=== PATIENT | female | born 1935 | race Caucasian/White ===

== ENCOUNTER 2018-09-04 05:30 | Inpatient (IN) ==
[2018-09-04] MEDS ORDERED: Dexamethasone Inj 20 MG/5 ML Vial IV.PUSH ONE (06:10)
[2018-09-04] MEDS ORDERED: Chlorhexidine 4% Topical 120 APPLIC/120 ML Bottle TOPICAL SCH (06:15)
[2018-09-04] MEDS ORDERED: Metoprolol Tartrate 25 MG Tablet PO ONE (06:21)
[2018-09-04] MEDS ORDERED: Chlorhexidine Gluconate 2% 1 Pack (2 Cloths) TOPICAL ONE (06:21)
[2018-09-04] MEDS ORDERED: Post-op Orders (for Pharmacy) OTHER STA (06:53)
[2018-09-04] MEDS ORDERED: Bisacodyl 10 MG Supp RECTAL PRN (06:53)
[2018-09-04] MEDS ORDERED: ceFAZolin 2 GM Premix Inj 2 GM/50 ML PIGGYBACK IV.SIG SCH ×2 (07:00→14:00)
[2018-09-04] MEDS ORDERED: Vancomycin Inj 1,000 MG in Sodium Chlor 0.9% Inj 250 ML IV.SIG SCH (07:00)
[2018-09-04] MEDS ORDERED: Sodium Chlor 0.9% Inj 500 ML IV.SIG SCH (07:00)
[2018-09-04] MEDS ORDERED: Lidocaine PF 1% Inj 5 ML Syringe OTHER ONE (07:56)
[2018-09-04] MEDS ORDERED: Neostigmine Inj 5 MG/5 ML Syringe IV.PUSH ONE (07:56)
[2018-09-04] MEDS ORDERED: Glycopyrrolate Inj 1 MG/5 ML Syringe IV.PUSH ONE (07:56)
[2018-09-04] MEDS ORDERED: SODIUM CHLOR 0.9% IV.SIG SCH (08:30)
[2018-09-04] MEDS ORDERED: Sodium Chlor 0.9% Inj 100 ML, Tranexamic Acid Inj 3,000 MG P-ARTICULR SCH ×2 (08:30)
[2018-09-04] MEDS ORDERED: HYDROmorphone PF Inj 1 MG/ML Ampul IV.PUSH PRN (08:30)
[2018-09-04] MEDS ORDERED: TRANEXAMIC ACID IV.SIG SCH (08:30)
[2018-09-04] MEDS ORDERED: Sodium Chlor 0.9% Inj 40 ML, Bupivacaine Liposo PF 1.3% Inj 20 ML P-ARTICULR SCH ×2 (08:30)
[2018-09-04] MEDS ORDERED: Morphine Inj 4 MG/ML Vial ONE (10:22)
[2018-09-04] MEDS ORDERED: fentaNYL Citrate Inj 100 MCG/2 ML Ampul ONE (10:22)
[2018-09-04] MEDS ORDERED: *Meperidine Inj 25 MG/ML Vial PERIprocedural Use ONLY ONE (10:26)
[2018-09-04] MEDS ORDERED: *morphine SULFATE 4 MG/ML PERIprocedure ONLY ONE ×2 (10:45→11:23)
--- NOTE | 2018-09-04 10:59 | XR ---
EXAM DATE: 09/04/2018 9:59 AM EDT AGE/SEX: 82 years / Female INDICATIONS: Post-op right total hip arthroplasty. CLINICAL DATA: This is the patient's initial encounter. Patient reports that signs and symptoms have been present for 1 day and indicates a pain score of Nonresponsive. MEDICAL/SURGICAL HISTORY: Non-responsive. Non-responsive. COMPARISON: No prior exams available for comparison. FINDINGS: 2 AP views of the right hip were obtained and demonstrate the patient is status post arthroplasty. Th e femoral and acetabular components are intact and in normal alignment. There is overlying soft tissu e swelling and gas. CONCLUSION: Expected postoperative changes status post arthroplasty. Electronically signed by: Rancho Zarco MD 09/04/2018 10:57 AM EDT
[2018-09-04] MEDS ORDERED: *morphine SULFATE 8 MG/ML PERIprocedure ONLY ONE (11:06)
--- NOTE | 2018-09-04 11:26 | XR ---
EXAM DATE: 09/04/2018 11:23 AM EDT AGE/SEX: 82 years / Female INDICATIONS: Post-op right total hip arthroplasty. CLINICAL DATA: This is the patient's initial encounter. Patient reports that signs and symptoms have been present for 1 day and indicates a pain score of 6/10. MEDICAL/SURGICAL HISTORY: Hypertension. . Left total hip arthroplasty. COMPARISON: TLI, XR HIP AP AND LAT, RIGHT, 05/17/2018. . FINDINGS: AP and crosstable lateral views the right hip were obtained as well as an AP view the pelvis. The pat ient is status post bilateral hip arthroplasty. The femoral and acetabular components are intact and in normal alignment. There is soft tissue swelling and gas surrounding the right arthroplasty. CONCLUSION: Status post bilateral hip arthroplasty with expected postoperative change. Electronically signed by: Rancho Zarco MD 09/04/2018 11:25 AM EDT
--- NOTE | 2018-09-04 13:18 | MP ---
cc: Cricket Salazar MD DATE OF OPERATION: 09/04/2018 PREOPERATIVE DIAGNOSIS: Right hip osteoarthritis. POSTOPERATIVE DIAGNOSIS: Right hip osteoarthritis. PROCEDURE PERFORMED: Right total hip arthroplasty. SURGEON: Cricket Salazar MD. SPINNER IRON: TAMANNA Herr. ANESTHESIA: General. ESTIMATED BLOOD LOSS: 250 mL. COMPLICATIONS: None. IMPLANTS USED: DePuy Corail size 12 press-fit high offset femoral stem, size 52 solid Austin Gription cup, size 36 mm cobalt chrome head +1.5 neck. JUSTIFICATION: This patient is an 82-year-old female with a history of severe osteoarthritis involving the right hip joint. She has severe disabling pain with standing, walking, and severe pain at rest. She has failed greater than 3 months of nonoperative conservative treatment to include medication therapy, injections, ambulatory assistive aids, home exercise program, activity modification, or weight loss. X-rays of the right hip reveal severe osteoarthritis with [id number] joint space narrowing, subchondral sclerosis, subchondral cyst, osteophyte formation with subluxation. The patient was counseled on risks, benefits, and alternatives to a total hip arthroplasty. The risks were discussed, which include, but are not limited to anesthesia, bleeding, infection, damage to nerves or blood vessels, pain, stiffness, fracture dislocations, leg length discrepancies, blood clots, pulmonary embolism, and even . The patient's pain is severe. She favored the benefits over the risks. She did wish to proceed with surgery. PROCEDURE IN DETAIL: Written consent was obtained. The patient was identified by name, taken to the operating room and placed supine on the operating table. General anesthesia was administered to the patient as well as 2 grams of IV Ancef and 1 gram of IV vancomycin. The right and left feet were placed in a well-padded traction boots. The right hip and right lower extremity were prepped and draped using isopropyl alcohol, Hibiclens solution and ChloraPrep solution. After a timeout was performed, a longitudinal incision made over the anterolateral aspect of the right hip. The fascial layer was incised. Dissection was carried over the tensor fascia yaakov beneath the rectus femoris to allow exposure of the anterior hip capsule. A capsulotomy incision was performed. used to perform a femoral neck cut. The osteophytic femoral head and neck component was removed. A 10 blade scalpel was used to excise the labrum. Sequential reaming began at size 47 and was carried through to a size 52. A solid Austin 52 mm cup was impacted at approximately 45 degrees of abduction and 10 degrees of anteversion. There was good purchase and fixation and insertion of the cup. A screw hole eliminator was placed, followed by the neutral 36 mm highly crosslinked polyethylene liner. The liner was impacted in place and tested for stability. Attention was turned to the femur where the leg was externally rotated, extended and adducted. The capsule was released off the undersurface of the greater trochanter to allow for elevation and lateralization of the femur. A box cutting osteotome was used to gain entrance into the intramedullary canal of the femur and was followed by canal finder and sequential broaching up to a size 12. A calcar planer was used to plane the calcar. Trial head and neck combinations were evaluated and final components implanted with the correct components likely to achieve extra rotation of 70 degrees extension all the way down to the ground without evidence of anterior instability or impingement. Fluoroscopic imaging showed appropriate implantation of components. The surgical wound was thoroughly irrigated with sterile saline pulse lavage with antibiotic-impregnated solution. The fascial layer was closed with #1 Vicryl suture, subcutaneous layer with 2-0 Vicryl suture. Skin was closed with Dermabond. Sterile dressing was applied. The patient tolerated the procedure well. No intraoperative complications noted. Alex Perea, physician assistant controller certified, was present during the entire procedure to include patient positioning and the procedure itself. The medical necessity of physician assistant controller was indicated in this case due to complexity of the procedure. He assisted with appropriate manipulation of the leg and also retraction of muscle, tendon, bone and neurovascular structures. He assisted with preparation of bone and also implantation of the prosthetic replacement. MD GEOVANNA Medina/yoly/isela , 09:51 AM , 09:58 AM
[2018-09-04] MEDS ORDERED: *Ondansetron Inj 4 MG/2 ML Vial PERIprocedural Use ONLY ONE (13:48)
[2018-09-04] MEDS: Multivitamin/Minerals Therapeutic Tablet PO SCH ×2 (16:12→21:25)
[2018-09-04] MEDS: Senna/Docusate Sodium 8.6/50 MG Tablet PO SCH ×2 (16:13→21:24)
[2018-09-04] MEDS: ceFAZolin 2 GM Premix Inj 2 GM/100 ML BAG IV.SIG SCH ×2 (17:40→21:23)
[2018-09-04] MEDS ORDERED: Zolpidem Tartrate 5 MG Tablet PO PRN (21:00)
[2018-09-04 22:04] LABS: Bacteria,Urine Rare /hpf; Bilirubin,Urine Negative (Negative); Calcium Oxalate Crystals,Urine Rare /hpf; Clarity,Urine Hazy (Clear); Color,Urine Yellow (Yellw/Straw); Glucose,Urine (UA) Negative (Negative); Hyaline Casts,Urine 5 /lpf (0-3); Leukocyte Esterase,Urine Small (Negative); Mucus,Urine Few /lpf (Occasional); Nitrite,Urine Negative (Negative); Specific Gravity,Urine 1.018 (1.002-1.035); Squamous Epithelial Cell,Urine 1 /hpf (0-5)
[2018-09-05] MEDS: ceFAZolin 2 GM Premix Inj 2 GM/100 ML BAG IV.SIG SCH (01:25)
[2018-09-05 05:39] LABS: Hematocrit 32.4 % (35.0-46.0); Hemoglobin 10.8 gm/dL (11.6-15.3)
[2018-09-05 05:55] LABS: Calcium 8.3 mg/dL (8.5-10.1); Carbon Dioxide 26.1 meq/L (21.0-32.0); Potassium 4.5 meq/L (3.5-5.1)
--- NOTE | 2018-09-05 08:27 | P.PNOP ---
Subjective Interval history: pain tolerable. Physical Exam Vital signs: Vital Signs 09/04/18 10:12 09/04/18 10:15 09/04/18 10:30 Temperature 97.9 F 97.9 F 97.9 F Pulse Rate 86 85 79 Respiratory Rate 14 16 14 Blood Pressure 121/56 L 124/65 148/66 H Pulse Oximetry 97 99 98 09/04/18 10:45 09/04/18 11:00 09/04/18 11:30 Temperature 97.9 F 97.9 F 97.9 F Pulse Rate 71 73 65 Respiratory Rate 14 14 14 Blood Pressure 136/61 132/62 117/56 L Pulse Oximetry 99 94 L 96 09/04/18 12:00 09/04/18 12:30 09/04/18 13:00 Temperature 97.9 F 97.9 F 97.9 F Pulse Rate 73 79 70 Respiratory Rate 14 14 14 Blood Pressure 122/58 L 115/55 L 106/53 L Pulse Oximetry 97 96 97 09/04/18 15:00 09/04/18 16:00 09/04/18 16:30 Temperature 97.9 F 97.9 F Pulse Rate 76 77 Respiratory Rate 14 14 Blood Pressure 120/59 L 122/62 Pulse Oximetry 95 99 96 09/04/18 20:00 09/05/18 00:00 09/05/18 04:00 Temperature 97.0 F L 97.6 F 97.7 F Pulse Rate 64 72 86 Respiratory Rate 17 17 18 Blood Pressure 143/79 H 152/70 H 140/63 Pulse Oximetry 98 98 96 Intake & Output 09/04/18 09/05/18 09/05/18 18:59 06:59 18:59 Intake Total 1462.54 / 1462.54 1200 / 1200 Output Total 250 / 250 Balance 1212.54 / 1212.54 1200 / 1200 Weight 83.6 kg 83.3 kg Intake: IV 562.54 / 562.54 1200 / 1200 LR 1000 mL Inj 1,000 ML @ 80 1000 / 1000 mls/hr IV.CONT .[id number] [facility] Rx# :[id number] Cyklokapron Inj 1,254 MG In NS 112.54 / 112.54 Inj 100 ML @ 200 mls/hr IV.SIG ONCE [facility] Rx#:[id number] Vancomycin Inj 1,000 MG In NS 250 / 250 Inj 250 ML @ 250 mls/hr IV.SIG [facility] Rx#:[id number] Ancef 2 GM Premix Inj 2 gm In 100 / 100 200 / 200 100 ml @ 100 mls/hr IV.SIG Q6H [facility] Rx#:[id number] Ancef 2 GM Premix Inj 2 gm In 50 / 50 50 ml @ 100 mls/hr IV.SIG [facility] Rx#:[id number] Anesthesia Amount 900 / 900 Output: Estimated Blood Loss 250 / 250 Other: # Voids 0 5 Date of Last Bowel Movement 09/04/18 09/04/18 # Bowel Movements 1 Narrative: in bed, nad dressing c/d/i thigh soft, mild ecchymosis neg homans nvi Results - Labs CBC & Chem 7: 09/05/18 04:06 09/05/18 04:06 Laboratory Results - last 24 hr 09/04/18 09/05/18 09/05/18 06:05 04:06 04:06 Hgb 10.8 L Hct 32.4 L Sodium 141 Potassium 4.5 Chloride 107 Carbon Dioxide 26.1 Anion Gap 8 BUN 16 Creatinine 0.77 Estimated GFR 72 L Random Glucose 116 H Calcium 8.3 L Urine Color Yellow Urine Clarity Hazy H Urine pH 5.0 Ur Specific [place] 1.018 Urine Protein Negative Urine Glucose (UA) Negative Urine Ketones Negative Urine Occult Blood Negative Urine Nitrate Negative Urine Bilirubin Negative Urine Urobilinogen Less than 2 Ur Leukocyte Esterase Small H Urine RBC 1 Urine WBC 9 H Ur Squamous Epith Cells 1 Calcium Oxalate Crystal Rare H Urine Bacteria Rare H Hyaline Casts 5 Urine Mucus Few H Micro UA Comment Culture indicated Ur Microscopic Review Not Reportable Urine Culture Comments Culture indicated - Imaging Impressions Hip X-Ray 09/04/18 00:00 CONCLUSION: Expected postoperative changes status post arthroplasty. Hip X-Ray 09/04/18 06:52 CONCLUSION: Status post bilateral hip arthroplasty with expected postoperative change. Assessment and Plan - Ortho Post Op Day # 1 - Assessment and Plan s/p R KALIA anterior approach wbat ok to maintain dressing unless saturated asa 82 d/c planning to snf vs home with hhc and pt - depending upon progress in PT f/up dr. harris 2 weeks
--- NOTE | 2018-09-05 09:04 | P.CON ---
History of Present Illness Service: Hospitalist Consult date: 09/05/18 Requesting Physician: Cricket Salazar Reason for Consult: Medical management. Primary Care Provider: Mikie Palafox MD Chief Complaint: Right hip pain History of Present Illness: Ms. Horne is a pleasant 82-year-old female with a history of hypertension who underwent elective right total hip arthroplasty on 09/04/2018 due to severe right hip osteoarthritis. She failed conservative treatment including medication, injections physical therapy which led to this elective surgery. Hospital service was consulted for medical management. Patient denies any acute concerns. At the time of this interview, patient denies any chest pain, shortness of breath, fever or chills. Her pain is well controlled. Denies any changes in bowel or bladder habits. She does complain of multiple episodes of UTI. Currently she denies any dysuria but complains of lower abdomen/pelvic area discomfort. Past medical history: Right hip osteoarthritis, hypertension, seasonal allergies. Past surgical history: Left hip surgery, sinus surgery. Social history: Patient drinks wine daily and denies using tobacco or illicit drugs. Family history: Both father and mother had hypertension as well as heart disease. Review of Systems All other systems reviewed negative except as stated in HPI PMFSH - History History Provided By: Patient - Medical History Medical History: Medical History (Last Reviewed 09/05/18 @ 10:08 by Brea Zhong) Anxiety Arthritis Back pain Chronic UTI Dental root implant present Diminished hearing GERD (gastroesophageal reflux disease) High cholesterol History of MRSA infection Hypertension Joint pain Neck pain Skin cancer Urinary frequency Urinary incontinence Wears glasses - Surgical History Surgical History: Surgical History (Last Reviewed 09/05/18 @ 10:08 by Brea Zhong) History of arthroplasty of left hip History of sinus surgery Hx of cardiac cath - Tobacco History Second Hand Smoke Exposure: No Smoking Status: Never smoker - Alcohol History How Often Do You Have a Drink Containing Alcohol: 4 or more times a week - Substance Use History Substance History: No History of Abuse - Travel History Recent Travel in the [place] Within the Last 8 Weeks: No Recent Travel Out of the Country Within the Last 8 Weeks: No - Immunization History Tetanus Immunization: Unsure Hx Influenza Vaccine This Season: Yes Medications and Allergies Active Medications: Active Medications Hydrocodone Bitart/Acetaminophen (Covert 7.5/325) 1 tab PO Q4H PRN PRN Reason: PAIN LESS THAN 5 ON SCALE Last Admin: 09/05/18 06:01 Dose: 1 tab Hydrocodone Bitart/Acetaminophen (Covert 7.5/325) 2 tab PO Q6H PRN PRN Reason: PAIN SCALE 5 TO 10 Al Hydroxide/Mg Hydroxide (Milk Of Magnesia Liq) 30 ml PO BID PRN PRN Reason: Mild Constipation Amlodipine Besylate (Norvasc) 5 mg PO DAILY [facility] Aspirin (Aspirin Chew) 81 mg PO BID [facility] Last Admin: 09/04/18 21:24 Dose: 81 mg Bisacodyl (Dulcolax Supp) 10 mg RECTAL DAILY PRN PRN Reason: SEVERE CONSITIPATION Chlorhexidine Gluconate (Hibiclens 4% Topical) 1 applicatio TOPICAL ONCE [facility] Stop: 09/08/18 06:14 Diphenhydramine HCl (Benadryl) 25 mg PO Q6H PRN PRN Reason: ITCHING Hydromorphone HCl (Dilaudid Pf Inj) 1 mg IV.PUSH Q3H PRN PRN Reason: BREAKTHROUGH PAIN Cefazolin Sodium/Dextrose (Ancef 2 Gm Premix Inj) 2 gm in 50 mls @ 100 mls/hr IV.[facility] Stop: 09/08/18 06:59 Last Infusion: 09/04/18 08:42 Dose: Infused Vancomycin HCl 1,000 mg/ (Sodium Chloride) 250 mls @ 250 mls/hr IV.[facility] [employer] [facility] Stop: 09/07/18 06:10 Last Infusion: 09/04/18 09:12 Dose: Infused Sodium Chloride (Ns Inj) 500 mls @ 30 mls/hr IV.SIG .Q10H [facility] Last Admin: 09/04/18 07:12 Dose: Not Given Lactated Ringer's (Lr 1000 Ml Inj) 1,000 mls @ 80 mls/hr IV.CONT .[id number] [facility] Last Admin: 09/04/18 21:26 Dose: 80 mls/hr Lactulose (Lactulose Liq) 30 ml PO DAILY PRN PRN Reason: SEVERE CONSITIPATION Losartan Potassium (Cozaar) 50 mg PO DAILY [facility] Metoprolol Tartrate (Lopressor) 50 mg PO DAILY [facility] Miscellaneous Information (Misc Nursing Information) 0 each OTHER UNSCH PRN PRN Reason: SEE LABEL COMMENTS Stop: 09/05/18 10:14 Multivitamins/Minerals (Theragran-M) 1 tab PO BID [facility] Stop: 11/03/18 08:59 Last Admin: 09/04/18 21:25 Dose: 1 tab Ondansetron HCl (Zofran Inj) 4 mg IV.PUSH Q6H PRN PRN Reason: NAUSEA OR VOMITING Pantoprazole Sodium (Protonix) 40 mg PO DAILY [facility] Povidone Iodine (Betadine 7.5% Scrub) 1 applicatio TOPICAL ONCE [facility] Stop: 09/08/18 06:59 Senna/Docusate Sodium (Jen-Colace) 1 tab PO BID [facility] Last Admin: 09/04/18 21:24 Dose: 1 tab Sennosides (Senokot) 17.2 mg PO BID PRN PRN Reason: Moderate Constipation Sodium Chloride (Ns Flush) 2 ml IV.FLUSH BID [facility] Last Admin: 09/04/18 21:24 Dose: Not Given Sodium Chloride (Ns Flush) 2 ml IV.FLUSH PRN PRN PRN Reason: FLUSH AFTER USING IV ACCESS Trimethoprim/Sulfamethoxazole (Bactrim Ds) 1 tab PO Q12HR [facility] Stop: 09/11/18 23:59 Zolpidem Tartrate (Ambien) 5 mg PO HS PRN PRN Reason: INSOMNIA Allergies Allergy/AdvReac Type Severity Reaction Status Date / Time No Known Allergies Allergy Verified 09/04/18 06:12 Home Medications Medication Instructions Recorded Confirmed Type acetaminophen [Acetaminophen Extra 500 mg PO Q6H PRN 08/17/18 09/04/18 History Strength] amlodipine 5 mg PO DAILY 08/17/18 09/04/18 History diclofenac sodium 75 mg PO BID 08/17/18 09/04/18 History diphenhydramine HCl 25 mg PO Q4H PRN 08/17/18 09/04/18 History fexofenadine [Tyra Allergy] 180 mg PO DAILY 08/17/18 09/04/18 History losartan 50 mg PO DAILY 08/17/18 09/04/18 History metoprolol tartrate 50 mg PO DAILY 08/17/18 09/04/18 History Physical Exam Vital signs: Vital Signs 09/04/18 10:12 09/04/18 10:15 09/04/18 10:30 Temperature 97.9 F 97.9 F 97.9 F Pulse Rate 86 85 79 Respiratory Rate 14 16 14 Blood Pressure 121/56 L 124/65 148/66 H Pulse Oximetry 97 99 98 09/04/18 10:45 09/04/18 11:00 09/04/18 11:30 Temperature 97.9 F 97.9 F 97.9 F Pulse Rate 71 73 65 Respiratory Rate 14 14 14 Blood Pressure 136/61 132/62 117/56 L Pulse Oximetry 99 94 L 96 09/04/18 12:00 09/04/18 12:30 09/04/18 13:00 Temperature 97.9 F 97.9 F 97.9 F Pulse Rate 73 79 70 Respiratory Rate 14 14 14 Blood Pressure 122/58 L 115/55 L 106/53 L Pulse Oximetry 97 96 97 09/04/18 15:00 09/04/18 16:00 09/04/18 16:30 Temperature 97.9 F 97.9 F Pulse Rate 76 77 Respiratory Rate 14 14 Blood Pressure 120/59 L 122/62 Pulse Oximetry 95 99 96 09/04/18 20:00 09/05/18 00:00 09/05/18 04:00 Temperature 97.0 F L 97.6 F 97.7 F Pulse Rate 64 72 86 Respiratory Rate 17 17 18 Blood Pressure 143/79 H 152/70 H 140/63 Pulse Oximetry 98 98 96 09/05/18 08:00 Temperature 98.2 F Pulse Rate 85 Respiratory Rate 18 Blood Pressure 148/65 H Pulse Oximetry 97 Intake & Output 09/04/18 09/05/18 09/05/18 18:59 06:59 18:59 Intake Total 1462.54 / 1462.54 1200 / 1200 Output Total 250 / 250 Balance 1212.54 / 1212.54 1200 / 1200 Weight 83.6 kg 83.3 kg Intake: IV 562.54 / 562.54 1200 / 1200 LR 1000 mL Inj 1,000 ML @ 80 1000 / 1000 mls/hr IV.CONT .[id number] [facility] Rx# :[id number] Cyklokapron Inj 1,254 MG In NS 112.54 / 112.54 Inj 100 ML @ 200 mls/hr IV.SIG ONCE [facility] Rx#:[id number] Vancomycin Inj 1,000 MG In NS 250 / 250 Inj 250 ML @ 250 mls/hr IV.[facility] [employer] Rx#:[id number] Ancef 2 GM Premix Inj 2 gm In 100 / 100 200 / 200 100 ml @ 100 mls/hr IV.SIG Q6H [facility] Rx#:[id number] Ancef 2 GM Premix Inj 2 gm In 50 / 50 50 ml @ 100 mls/hr IV.[facility] [employer] Rx#:[id number] Anesthesia Amount 900 / 900 Output: Estimated Blood Loss 250 / 250 Other: # Voids 0 5 Date of Last Bowel Movement 09/04/18 09/04/18 # Bowel Movements 1 Narrative: GENERAL: Alert, NAD. SKIN: Warm and dry. HEAD: Normocephalic. EYES: No scleral icterus. No injection or drainage. NECK: Supple, trachea midline. No JVD or lymphadenopathy. CARDIOVASCULAR: Regular rate and rhythm without murmurs, gallops, or rubs. RESPIRATORY: Breath sounds equal bilaterally. No accessory muscle use. GASTROINTESTINAL: Abdomen soft, non-tender, nondistended. MUSCULOSKELETAL: No cyanosis, or edema. s/p right KALIA BACK: Nontender without obvious deformity. No CVA tenderness. Assessment and Plan - Plan Ms. Covington is a pleasant 82-year-old female with a history of hypertension who underwent elective right total hip plasty due to osteoarthritis on 09/04/2018. Hospital service was consulted for medical management. Right hip osteoarthritis -s/p right total hip arthroplasty -Aspirin 81 mg twice daily for DVT prophylaxis Hypertension Seasonal allergies -Continue home medications including amlodipine, losartan, metoprolol, Tyra. Full code. Aspirin 81mg BID. Patient is discharged by orthopedic surgery. Waiting for [facility] or [facility].
[2018-09-05] MEDS: Metoprolol Tartrate 50 MG Tablet PO SCH (09:45)
[2018-09-05] MEDS: amLODIPine 5 MG Tablet PO SCH (09:45)
[2018-09-05] MEDS: Senna/Docusate Sodium 8.6/50 MG Tablet PO SCH ×2 (09:46→20:56)
[2018-09-05] MEDS: Multivitamin/Minerals Therapeutic Tablet PO SCH ×2 (09:46→20:56)
[2018-09-06 05:45] LABS: Hemoglobin 9.7 gm/dL (11.6-15.3)
[2018-09-06] MEDS: Metoprolol Tartrate 50 MG Tablet PO SCH (09:17)
[2018-09-06] MEDS: Senna/Docusate Sodium 8.6/50 MG Tablet PO SCH ×2 (09:17→21:30)
[2018-09-06] MEDS: Multivitamin/Minerals Therapeutic Tablet PO SCH ×2 (09:17→21:30)
[2018-09-06] MEDS: amLODIPine 5 MG Tablet PO SCH (09:17)
--- NOTE | 2018-09-06 13:32 | P.PNOP ---
Subjective Interval history: still have nausea. Physical Exam Vital signs: Vital Signs 09/05/18 16:00 09/05/18 20:00 09/05/18 20:54 Temperature 98.4 F 98.3 F Pulse Rate 101 H 102 H Respiratory Rate 18 18 18 Blood Pressure 141/65 H 132/60 Pulse Oximetry 92 L 94 L 09/06/18 00:00 09/06/18 08:00 09/06/18 12:00 Temperature 98.3 F 98.2 F 97.1 F L Pulse Rate 92 H 106 H 78 Respiratory Rate 18 17 18 Blood Pressure 110/54 L 152/69 H 130/58 L Pulse Oximetry 93 L 93 L 96 Intake & Output 09/05/18 09/06/18 09/06/18 18:59 06:59 18:59 Weight 83 kg Other: # Voids 4 6 Date of Last Bowel Movement 09/05/18 09/05/18 09/04/18 # Bowel Movements 1 Narrative: in bed, nad, trying to eat dressing c/d/i thigh soft neg homans nvi Results - Labs CBC & Chem 7: 09/06/18 05:00 09/05/18 04:06 Laboratory Results - last 24 hr 09/06/18 05:00 Hgb 9.7 L Hct 29.0 L Microbiology 09/04/18 06:05 Clean Catch Urine Urine Culture - Final No growth in 48 hours Assessment and Plan - Ortho Post Op Day # 2 - Assessment and Plan s/p R KALIA anterior approach wbat ok to maintain dressing unless saturated asa 82 chronic UTI - Bactrim DS. will likely need to f/up with urology after d/c d/c planning to snf f/up dr. harris 2 weeks
[2018-09-06 16:33] VITALS: O2SAT 93
--- NOTE | 2018-09-07 08:11 | P.PNOP ---
Subjective Interval history: feeling a little better. Physical Exam Vital signs: Vital Signs 09/06/18 12:00 09/06/18 16:00 09/06/18 20:00 Temperature 97.1 F L 97.6 F 98.2 F Pulse Rate 78 72 97 H Respiratory Rate 18 18 15 Blood Pressure 130/58 L 115/70 141/63 H Pulse Oximetry 96 93 L 93 L 09/06/18 20:10 09/07/18 00:00 Temperature 98.1 F Pulse Rate 83 Respiratory Rate 15 15 Blood Pressure 122/58 L Pulse Oximetry 93 L Intake & Output 09/06/18 09/07/18 09/07/18 18:59 06:59 18:59 Intake Total 960 / 960 400 / 400 Balance 960 / 960 400 / 400 Weight 79.5 kg Intake: Oral 960 / 960 400 / 400 Other: # Voids 3 3 Date of Last Bowel Movement 09/04/18 09/04/18 Narrative: in bed, eating, nad dressing c/d/i thigh soft neg homans nvi Results - Labs CBC & Chem 7: 09/06/18 05:00 09/05/18 04:06 Microbiology 09/04/18 06:05 Clean Catch Urine Urine Culture - Final No growth in 48 hours Assessment and Plan - Ortho Post Op Day # 3 - Assessment and Plan s/p R KALIA anterior approach wbat ok to maintain dressing unless saturated asa 82 chronic UTI - Bactrim DS. will likely need to f/up with urology after d/c d/c planning to snf - cleared when authorized by insurance f/up dr. harris 2 weeks
[2018-09-07] MEDS: Senna/Docusate Sodium 8.6/50 MG Tablet PO SCH (08:30)
[2018-09-07] MEDS: amLODIPine 5 MG Tablet PO SCH (08:32)
[2018-09-07] MEDS: Metoprolol Tartrate 50 MG Tablet PO SCH (08:32)
[2018-09-07] MEDS: Multivitamin/Minerals Therapeutic Tablet PO SCH (08:32)
[2018-09-07 09:51] VITALS: RESP 20
[2018-09-07 12:36] VITALS: BP 111/53; PULSE 74; TEMP 97.9
--- NOTE | 2018-09-08 12:48 | MD ---
cc: Cricket Salazar MD DATE OF DISCHARGE: 09/07/2018 ADMITTING DIAGNOSIS: Severe degenerative osteoarthritis of the right hip. DISCHARGE DIAGNOSES: Severe degenerative osteoarthritis of the right hip. HISTORY OF PRESENT ILLNESS: Ms. Horne is an 82-year-old female who has been a longstanding patient of Dr[facility]. Currently, she is being evaluated for severe and progressive right hip pain. The patient does have a history of well-functioning left total hip arthroplasty. Regarding the right hip, the patient states a severe aching sensation with weightbearing activities. No alleviating factors at this point in time, although she has tried medications, assistive devices, physical therapy without relief of symptoms. She does have x-ray evidence of severe degenerative changes of the right hip joint. While in the office, the patient was counseled on her diagnosis and treatment options. Risks, benefits, and indications were discussed. The patient did elect to proceed with surgical intervention to include a right total hip arthroplasty. Date of surgery 09/04/2018, right total hip arthroplasty, anterior approach. POSTOPERATIVE: After surgery, the patient was admitted to [facility] where she received appropriate medical management, pain control, DVT prophylaxis, as well as physical therapy. DISCHARGE: Once being discharged from the hospital, patient is cleared to go to a intermediate facility. She is in stable condition. She may weight bear as tolerated. She has been instructed on wound care management. The patient has been provided prescriptions for pain control and DVT prophylaxis medication. She has also been provided a followup appointment approximately 2 weeks from her date of surgery. The patient has asked appropriate questions which have been answered. The patient is cleared for discharge. Dictated by TAMANNA Cai Cricket Salazar MD [email or web address]/[email or web address] , 08:27 AM , 08:33 AM
== END 2018-09-07 16:16 ==
LOC: HSDI 05:30 → N06 16:40
PROVIDERS: ADMIT Orthopaedic Surgery Sports Medicine; ATTEND Orthopaedic Surgery Sports Medicine